=== PATIENT | male | born 1960 | race Caucasian/White ===

== ENCOUNTER 2021-02-24 21:47 | Emergency (ER) | payer OTHER ==
[~2021-02-24] VITALS: Ht 188 cm; Wt 106.6 kg
[2021-02-24 21:59] VITALS: BP 151/63
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
--- NOTE | 2021-02-24 23:30 | NUR ---
FABIO HOLLY AT BEDSIDE EVALUATING PATIENT.
[2021-02-24] MEDS ORDERED: fentaNYL citrate 0.05 MG/ML VIAL IM ONE (23:35)
--- NOTE | 2021-02-25 | NUR ---
PT WENT TO CT SCAN
--- NOTE | 2021-02-25 00:04 | NUR ---
PATIENT TAKEN TO CT VIA W/C.
--- NOTE | 2021-02-25 00:11 | NUR ---
PT BACK FROM CT SCAN
[2021-02-25] MEDS ORDERED: NAPR-54 PO (00:31)
[2021-02-25] MEDS ORDERED: fentaNYL citrate 0.05 MG/ML VIAL ONE (01:03)
[2021-02-25] MEDS ORDERED: ONDANSETRON 4 MG ODT PO ONE (01:10)
[2021-02-25 01:42] VITALS: BP 149/76
--- NOTE | 2021-02-25 01:42 | NUR ---
Patient discharged with v/s stable. Written and verbal after care instructions given and explained. Patient alert, oriented and verbalized understanding of instructions. Ambulatory with steady gait. All questions addressed prior to discharge. ID band removed. Patient advised to follow up with PMD. Rx of Naproxen given. Patient refused to take rx medication with him. Opportunity to ask questions provided and answered.
== END 2021-02-25 01:42 | disposition home or self-care (01) ==
LOC: MED 21:47
DX: S06.0X0A Concussion without loss of consciousness, initial encounter (principal); Z88.8 Allergy status to other drugs, medicaments and biological substances; Z88.5 Allergy status to narcotic agent; Z90.49 Acquired absence of other specified parts of digestive tract; Z79.899 Other long term (current) drug therapy; Z98.890 Other specified postprocedural states; V89.2XXA Person injured in unspecified motor-vehicle accident, traffic, initial encounter; Y93.89 Activity, other specified; Y92.89 Other specified places as the place of occurrence of the external cause; Y99.8 Other external cause status
CPT/HCPCS: 70450; 96372; 99284; J3010; Q0162